=== PATIENT | female | born 1985 | race Caucasian/White ===

== ENCOUNTER 2016-06-03 11:54 | Inpatient (IN) | payer MEDICAID ==
[~2016-06-03] VITALS: Ht 157.5 cm; Wt 61.3 kg
[~2016-06-03 11:54] MED LIST: BAC
[2016-06-03 13:33] LABS: BASOPHIL % 0 % (0-2); PLATELET COUNT 90 x10^3mcL (130-400)
[2016-06-03 13:51] LABS: microscopic required? NO
[2016-06-03 13:51] LABS: CARBON DIOXIDE 29 mmol/L (21-32); CHLORIDE SERUM 105 mmol/L (98-107); CREATININE SERUM 0.6 mg/dL (0.6-1.0); GFR1 > 60 mL/min; GLUCOSE SERUM 97 mg/dL (74-106); POTASSIUM SERUM 3.3 mmol/L (3.5-5.1); SODIUM SERUM 141 mmol/L (136-145)
[2016-06-03 13:52] LABS: CALCIUM 8.4 mg/dL (8.5-10.1)
[2016-06-03 14:02] LABS: ALBUMIN 3.5 g/dL (3.4-5.0); ALKALINE PHOSPHATASE 40 U/L (46-116); ALT/SGPT 397 U/L (14-59); AST/SGOT 167 U/L (15-37); BILIRUBIN TOTAL 0.4 mg/dL (0.20-1.00); TOTAL PROTEIN, SERUM 6.9 g/dL (6.4-8.2)
[2016-06-03 14:04] LABS: urine erythrocyte NEGATIVE (NEGATIVE)
[2016-06-03 15:31] LABS: MAGNESIUM 1.4 mg/dL (1.8-2.4); PHOSPHOROUS 3.6 mg/dL (2.5-4.9)
[2016-06-03 15:32] LABS: CHOLESTEROL/HDL RATIO 1.9
[2016-06-03 15:34] LABS: T3 TOTAL 0.93 ng/mL
[2016-06-03 15:38] LABS: FREE T4 0.78 ng/dL (0.76-1.46)
[2016-06-03 15:43] LABS: AMPHETAMINE QUAL UR NONE DETECTED (NEG <=1000)
[2016-06-03 15:57] VITALS: BP 95/59
[2016-06-03 21:23] VITALS: BP 88/54
[2016-06-03 23:10] VITALS: BP 85/58
[2016-06-04 06:29] VITALS: BP 88/55
[2016-06-04 07:09] LABS: CALCIUM 7.9 mg/dL (8.5-10.1); CARBON DIOXIDE 25.2 mmol/L (21-32); CHLORIDE SERUM 111 mmol/L (98-107); CREATININE SERUM 0.6 mg/dL (0.6-1.0); GFR1 > 60 mL/min; GLUCOSE SERUM 85 mg/dL (74-106); MAGNESIUM 2.6 mg/dL (1.8-2.4); SODIUM SERUM 143 mmol/L (136-145)
[2016-06-04 07:19] LABS: BASOPHIL % 0.2 % (0-2); RED CELL DISTRIBUTION WIDTH 14.2 % (11.5-14.5)
[2016-06-04 07:25] LABS: PLATELET COUNT 90 x10^3mcL (130-400)
[2016-06-04 09:20] VITALS: BP 95/57
[2016-06-04 13:00] VITALS: BP 92/57
[2016-06-04] MEDS ORDERED: MYCLUD PO (15:36)
[2016-06-04] MEDS ORDERED: BACTRIM1 TAB PO (15:37)
[2016-06-04] MEDS ORDERED: ZOF4 PO (15:37)
[2016-06-04] MEDS ORDERED: MECLIZINE HYD12.5 MG PO (15:38)
[2016-06-04 17:12] VITALS: BP 102/65
[2016-06-04 18:00] VITALS: BP 102/65
[2016-06-04 21:20] VITALS: BP 91/63
[2016-06-05 05:29] VITALS: BP 95/64
[2016-06-05 06:26] LABS: ALBUMIN 3.3 g/dL (3.4-5.0); CALCIUM 8.3 mg/dL (8.5-10.1); CHLORIDE SERUM 108 mmol/L (98-107); CREATININE SERUM 0.6 mg/dL (0.6-1.0); GFR1 > 60 mL/min; GLUCOSE SERUM 86 mg/dL (74-106); POTASSIUM SERUM 4.1 mmol/L (3.5-5.1); SODIUM SERUM 140 mmol/L (136-145)
[2016-06-05 07:05] LABS: RED CELL DISTRIBUTION WIDTH 14.1 % (11.5-14.5)
[2016-06-05 07:07] LABS: PLATELET COUNT 94 x10^3mcL (130-400)
[2016-06-05 08:00] VITALS: BP 95/62
[2016-06-05 09:43] LABS: BAND NEUTROPHIL 1 % (0-10); MONOCYTE 10 % (0-7); SEGMENTED NEUTROPHILS 75 % (37-75)
[2016-06-05 09:44] LABS: PLATELET MORPHOLOGY PLATELETS DECREASED; ovalocyte/elliptocyte 2+; rbc morphology (normal/abnorm) ABNORMAL (NORMAL)
[2016-06-05 13:02] VITALS: BP 97/63
[2016-06-05 16:56] VITALS: BP 99/65
[2016-06-05 22:32] VITALS: BP 103/71
[2016-06-06] MEDS ORDERED: ZITL PO (05:58)
[2016-06-06 06:18] VITALS: BP 92/58
[2016-06-06 10:11] VITALS: BP 92/58
== END 2016-06-06 11:53 | disposition home or self-care (01) | DRG 893 ==
LOC: ED 11:54 → DU 14:39 → MU 14:39 → DU 15:46 → MU 06-05 09:38
PROVIDERS: Emergency Medicine; ADMIT Family Medicine
DX: E86.0 Dehydration (principal); B20 Human immunodeficiency virus [HIV] disease; E44.0 Moderate protein-calorie malnutrition; E83.51 Hypocalcemia; B37.0 Candidal stomatitis; E87.8 Other disorders of electrolyte and fluid balance, not elsewhere classified; K52.9 Noninfective gastroenteritis and colitis, unspecified; E83.42 Hypomagnesemia; E87.6 Hypokalemia
CPT/HCPCS: 80307; 83880; 84439; J0696; J2405; J3475; J3490; J7030; Q0092

== ENCOUNTER 2016-09-06 16:44 | Emergency (ER) | payer OTHER ==
[~2016-09-06 16:44] MED LIST changes: +BACTRIM1 TAB PO; +MECLIZINE HYD12.5 MG PO; +MYCLUD PO; +ZITL PO; +ZOF4 PO
[2016-09-06 17:16] VITALS: BP 99/61
== END 2016-09-06 18:11 | disposition home or self-care (01) ==
LOC: ED 16:44
DX: B02.8 Zoster with other complications (principal); B20 Human immunodeficiency virus [HIV] disease; Z79.899 Other long term (current) drug therapy